=== PATIENT | female | born 1965 | race African-American/Black ===

== ENCOUNTER 2018-08-19 23:00 | Emergency (ER) | payer MEDICAID ==
[~2018-08-19] VITALS: Ht 167.6 cm; Wt 80.0 kg
[2018-08-20] MEDS ORDERED: KETOROLAC 15MG/ML VIAL ONE (01:14)
[2018-08-20] MEDS ORDERED: ONDANSETRON HCL 4MG/2ML INJ ONE (01:15)
[2018-08-20 03:46] LABS: BASOPHILS % 0.4 % (0.0-2.0); EOSINOPHILS % 2.4 % (0.0-5.0); HEMOGLOBIN. 12.6 g/dL (12.0-16.0); LYMPHOCYTES % 41.9 % (20.0-50.0); MEAN CORPUSCULAR HEMOGLOBIN 30.3 pg (28.0-32.0); MEAN CORPUSCULAR VOLUME 89.1 fL (81.0-99.0); NEUTROPHILS % 48.3 % (40.0-76.0); PLATELET 214 x1000/uL (130-400); RED BLOOD CELL COUNT 4.15 mill/uL (4.2-5.4); RED CELL DISTRIBUTION WIDTH 15.3 % (11.6-14.6)
[2018-08-20 04:47] LABS: CHLORIDE 109 mEq/L (98-107)
[2018-08-20 05:27] VITALS: BP 143/86
== END 2018-08-20 05:56 | disposition home or self-care (01) ==
LOC: ER 23:00
DX: R10.9 Unspecified abdominal pain (principal); R19.7 Diarrhea, unspecified; R19.12 Hyperactive bowel sounds; R61 Generalized hyperhidrosis; R11.0 Nausea; I10 Essential (primary) hypertension; F12.10 Cannabis abuse, uncomplicated; F17.200 Nicotine dependence, unspecified, uncomplicated; Z98.890 Other specified postprocedural states
CPT/HCPCS: 36415; 74176; 80053; 85025; 99285; J1885; J2405; J7030